=== PATIENT | male | born 1990 | race Caucasian/White ===

== ENCOUNTER → 2016-05-17 | Outpatient (CLI) | payer SELFPAY | LOC: MW.CHIM 09:42 | PROVIDERS: ATTEND Internal Medicine | DX: J03.90 Acute tonsillitis, unspecified (principal) | CPT/HCPCS: 87081; 87880 ==

== ENCOUNTER → 2016-05-25 | Outpatient (CLI) | payer SELFPAY ==
[2016-05-25 16:54] LABS: CHLORIDE,CL 101 mmol/L (98-110); SODIUM,NA 139 mmol/L (136-146)
--- NOTE | 2016-05-26 13:54 | CR ---
EXAM DATE: 05/25/16 PATIENT'S AGE: 26 Patient: RAKAN SALAMANCA Facility: [place], [place] Site . Site : 1992 Study: XRay ST Neck [id number]/16/2017 4:51:09 PM Ordering Physician: Isabelle Green Final Report: HISTORY: Acute pharyngitis. Findings: AP and lateral soft tissue neck images demonstrates normal prevertebral soft tissues. The epiglottis is normal. There aryepiglottic folds are normal. The airway appears patent. Impression: No evidence of epiglottitis. Dictated by Lola Cardozo MD @ May 26 2016 8:47AM (Electronic Signature) Report Signed by Proxy and Original Signed Document filed in the Medical Record. [facility]
== END ==
LOC: MW.CHIM 16:17
PROVIDERS: ATTEND Internal Medicine
DX: J02.9 Acute pharyngitis, unspecified (principal)
CPT/HCPCS: 36415; 70360; 70360-26; 80048; 85025; 86308